=== PATIENT | male | born 1955 | race Caucasian/White ===

== ENCOUNTER 2018-08-14 06:46 | Day surgery (SDC) | payer BC ==
[2018-08-14] MEDS ORDERED: LIDOCAINE HCL 1% MPF 30 SOL ONE (07:59)
[2018-08-14] MEDS ORDERED: PROPOFOL 500 MG/50 ML EMU IV ONE (07:59)
[2018-08-14] MEDS ORDERED: ONDANSETRON HCL 4 MG/2 ML SOL ONE (08:00)
[2018-08-14 09:14] VITALS: RESP 18
[2018-08-14 09:28] VITALS: PULSE 60; TEMP 97.9; O2SAT 98
[2018-08-14 09:45] VITALS: BP 126/91
== END 2018-08-14 09:50 | disposition home or self-care (01) ==
LOC: SURG 06:46
PROVIDERS: ATTEND Internal Medicine Gastroenterology
DX: Z12.11 Encounter for screening for malignant neoplasm of colon (principal); K64.8 Other hemorrhoids
CPT/HCPCS: J2405; J2001; J2704